=== PATIENT | male | born 1960 | race Caucasian/White ===

== ENCOUNTER 2017-11-19 18:07 | Inpatient (IN) | payer OTHER ==
[~2017-11-19] VITALS: Ht 177.8 cm; Wt 144.2 kg
[2017-11-19 19:31] LABS: Basophils # (auto) 0 uL; Basophils % (auto) 0.4 % (0.0-2.0); Eosinophils # (auto) 0.6 uL; Eosinophils % (auto) 5.4 % (0.0-7.0); Hematocrit 39.5 % (41.0-53.0); Hemoglobin 13.5 g/dL (13.5-17.5); Lymphocytes # (auto) 1.8 uL; Lymphocytes % (auto) 15.7 % (10.0-50.0); Mean Corpuscular Hemoglobin 29.8 pg (28.0-32.0); Mean Corpuscular Hgb Conc. 34.3 g/dL (32.0-36.0); Mean Corpuscular Volume 86.8 fL (80.0-100.0); Monocytes # (auto) 0.8 uL; Monocytes % (auto) 6.9 % (0.0-12.0); Neutrophils # (auto) 8.1 uL; Neutrophils % (auto) 71.6 % (37.0-80.0); Nucleated Red Blood Cells % 0.1 %; Platelet Count (auto) 234 10^3/uL (140-450); Red Blood Cells 4.55 10^6/uL (4.5-5.90); Red Cell Distribution Width 14.7 % (11.8-14.3); White Blood Cell 11.3 10^3/uL (4.4-10.8)
[2017-11-19 19:32] LABS: Urine Bacteria None Seen /hpf (None Seen)
[2017-11-19 19:51] LABS: Albumin 3.5 g/dL (3.4-5.0); BUN/Creatinine Ratio 18.7; Bilirubin, Total 0.3 mg/dL (0.2-1.0); Calcium 8.4 mg/dL (8.5-10.1); Magnesium 2.2 mg/dL (1.6-2.6); Potassium 4.1 mmol/L (3.5-5.1); Total Protein 8.3 g/dL (6.4-8.2)
[2017-11-19 19:56] LABS: Urine Specific Gravity 1.006 (1.001-1.035)
[2017-11-19 19:57] LABS: Urine Blood Negative /uL (Negative); Urine WBC 1 /hpf (0 - 3)
[2017-11-19] MEDS ORDERED: SODIUM CHLORIDE 0.9% 1,000 ML IV ONE (23:09)
[2017-11-19] MEDS ORDERED: ASPirin 81 mg TAB PO ONE (23:15)
[2017-11-19] MEDS ORDERED: cefTRIAXone 1GM/10ml IVPUSH 10 ML IV ONE (23:45)
[2017-11-19 23:58] LABS: INR 0.88 (0.9-1.15); Prothrombin Time 9.6 sec (9.37-12.3)
[2017-11-19 23:59] LABS: Partial Thromboplastin Time 29.2 sec (22.64-33.71)
[2017-11-20] MEDS ORDERED: METO25TA62 PO (00:59)
[2017-11-20] MEDS ORDERED: ISOS30TA4 PO (00:59)
[2017-11-20] MEDS ORDERED: CLOP75TA41 PO (00:59)
[2017-11-20] MEDS ORDERED: RANO500T2 PO (00:59)
[2017-11-20] MEDS ORDERED: ASPI-231 PO (00:59)
[2017-11-20] MEDS ORDERED: AMIO100T3 PO (00:59)
[2017-11-20] MEDS ORDERED: FURO40TA PO (00:59)
[2017-11-20] MEDS ORDERED: MORPHINE SULF INJ 2 MG/ML SYRINGE 1ML IV PRN (01:00)
[2017-11-20] MEDS ORDERED: HYDROcodone-ACET 5/325MG TAB PO PRN (01:00)
[2017-11-20] MEDS ORDERED: NITROGLYCERIN 0.4 MG SL TAB SL PRN (01:00)
[2017-11-20] MEDS ORDERED: ONDANSETRON HCL 4 MG/2 ML VIAL IV PRN (01:00)
[2017-11-20] MEDS ORDERED: ACETAMINOPHEN 500 MG TAB PO PRN (01:00)
[2017-11-20] MEDS ORDERED: FUROSEMIDE 40 MG/4 ML VIAL IV ONE (03:15)
[2017-11-20] MEDS ORDERED: DEXTROSE (50%) 50ML SYRG IV PRN (03:15)
[2017-11-20 03:33] LABS: Basophils # (auto) 0 uL; Basophils % (auto) 0.4 % (0.0-2.0); Eosinophils # (auto) 0.7 uL; Hemoglobin 12.5 g/dL (13.5-17.5); Lymphocytes # (auto) 2.3 uL; Lymphocytes % (auto) 20.3 % (10.0-50.0); Mean Corpuscular Hgb Conc. 34.7 g/dL (32.0-36.0); Mean Corpuscular Volume 86.5 fL (80.0-100.0); Monocytes # (auto) 0.7 uL; Monocytes % (auto) 6.5 % (0.0-12.0); Neutrophils # (auto) 7.5 uL; Neutrophils % (auto) 66.8 % (37.0-80.0); Platelet Count (auto) 209 10^3/uL (140-450); Red Blood Cells 4.16 10^6/uL (4.5-5.90); Red Cell Distribution Width 15.2 % (11.8-14.3); White Blood Cell 11.2 10^3/uL (4.4-10.8)
[2017-11-20 03:55] LABS: Calcium 8.2 mg/dL (8.5-10.1); Potassium 3.8 mmol/L (3.5-5.1)
[2017-11-20] MEDS: InsuLIN REG 1unit/0.01ml Soln (100units/ml) SC SCH ×3 (06:35→17:00)
[2017-11-20] MEDS: ACCU-CHEK COMFORT CURVE STRIP VI SCH ×3 (06:35→17:00)
[2017-11-20] MEDS ORDERED: ASPirin-EC 81 mg tab PO SCH (10:00)
[2017-11-20] MEDS ORDERED: ISOSORBIDE DINITRATE 10 MG TAB PO SCH (10:00)
[2017-11-20] MEDS ORDERED: AMIODARONE HCL 200 MG TAB PO SCH (10:00)
[2017-11-20] MEDS ORDERED: POM (12:50)
[2017-11-20] MEDS ORDERED: ALBUAER3 IN (12:50)
[2017-11-20] MEDS ORDERED: PANT40TA2 PO (12:50)
[2017-11-20] MEDS ORDERED: INSLANTI SC (12:50)
[2017-11-20] MEDS ORDERED: METOPROLOL SUCCINATE XL 50 MG TAB PO ONE (13:15)
[2017-11-20] MEDS ORDERED: METOPROLOL SUCCINATE XL 50 MG TAB PO SCH ×2 (13:15→22:00)
[2017-11-20] MEDS ORDERED: CLOPIDOGREL BISULFATE 75 MG TAB PO SCH (13:15)
[2017-11-20 16:33] VITALS: BP 130/60
[2017-11-20 17:44] VITALS: BP 130/61
[2017-11-20] MEDS ORDERED: AMIODARONE HCL 200 MG PO SCH (22:00)
[2017-11-20] MEDS ORDERED: RANOLAZINE ER 500 MG TAB PO SCH (22:00)
[2017-11-20] MEDS ORDERED: ISOSORBIDE MONONITRATE 20 MG TAB PO SCH (22:00)
[2017-11-21] MEDS ORDERED: FUROSEMIDE 40 MG TAB PO SCH (10:00)
[2017-11-21] MEDS ORDERED: ASPirin-EC 81 mg tab PO SCH (10:00)
== END 2017-11-20 17:50 | disposition home or self-care (01) | DRG 304 ==
LOC: ER 18:07 → EDBD 18:07 → TELE 18:08 → TELE-WESTW 11-20 08:12
PROVIDERS: ADMIT Family Medicine; ATTEND Family Medicine
DX: I16.0 Hypertensive urgency (principal); I50.43 Acute on chronic combined systolic (congestive) and diastolic (congestive) heart failure; Z68.43 Body mass index [BMI] 50.0-59.9, adult; E11.9 Type 2 diabetes mellitus without complications; J44.9 Chronic obstructive pulmonary disease, unspecified; E66.01 Morbid (severe) obesity due to excess calories; E03.9 Hypothyroidism, unspecified; E66.9 Obesity, unspecified; E78.5 Hyperlipidemia, unspecified; F17.210 Nicotine dependence, cigarettes, uncomplicated; I11.0 Hypertensive heart disease with heart failure; I70.0 Atherosclerosis of aorta; E78.00 Pure hypercholesterolemia, unspecified; I25.10 Atherosclerotic heart disease of native coronary artery without angina pectoris; Z95.5 Presence of coronary angioplasty implant and graft; Z83.3 Family history of diabetes mellitus; I25.2 Old myocardial infarction; Z82.49 Family history of ischemic heart disease and other diseases of the circulatory system; Z59.0 Homelessness; Z79.82 Long term (current) use of aspirin
CPT/HCPCS: 36415; 71046; 80048; 80053; 81001; 82962; 83735; 83880; 84443; 84484; 85025; 85379; 85610; 85730; 87040; 87081; 93005; 96361; 96365; 96374; 96375; J1815